=== PATIENT | male | born 1980 | race Two or more races ===

== ENCOUNTER 2021-01-21 16:40 | Emergency (ER) | payer OTHER ==
[~2021-01-21] VITALS: Ht 185.4 cm; Wt 108.0 kg
--- NOTE | 2021-01-21 17:11 | NUR ---
PT CAME IN [place] [facility] ABD PAIN THAT STARTED LAST NIGHT. "IT FEELS LIKE IM CONSTIPATED AND THE PAIN HAS BEEN MOVING DOWN MY ABD. I TOOK A SUPPOSITORY AND LAXATIVE BUT IT DIDNT SEEM TO HELP" PT RESTING IN [facility]. PROVIDED UA. AWAITING
[2021-01-21] MEDS ORDERED: MORPHINE SULFATE 4 MG/ML, 1ML ONE ×2 (18:06→19:28)
[2021-01-21] MEDS ORDERED: ONDANSETRON 2MG/ML, 2ML ONE (18:06)
[2021-01-21] MEDS ORDERED: ONDANSETRON 2MG/ML, 2ML IVPush ONE (18:30)
[2021-01-21] MEDS ORDERED: SODIUM CHLORIDE FLUSH 10ML SYR IVF ONE (18:30)
[2021-01-21] MEDS ORDERED: SODIUM CHLORIDE 0.9% 1,000ML IVBOLUS ONE (18:30)
[2021-01-21] MEDS: MORPHINE SULFATE 4 MG/ML, 1ML IVPush PRN ×2 (18:32→19:31)
[2021-01-21 18:36] VITALS: BP 163/92
[2021-01-21 18:36] LABS: ALANINE AMINOTRANSFERASE 27 U/L (12-78); ALBUMIN 4.1 g/dL (3.4-5.0); ANION GAP 7 mmol/L (5-15); CALCIUM 9.3 mg/dL (8.5-10.1); CHLORIDE 104 mmol/L (98-107); CREATININE 1.52 mg/dL (0.7-1.3)
[2021-01-21 18:39] LABS: ALKALINE PHOSPHATASE 69 U/L (45-117); BILIRUBIN,TOTAL 1.9 mg/dL (0.2-1.0); TOTAL PROTEIN 7.6 g/dL (6.4-8.2)
[2021-01-21 18:47] LABS: MICROSCOPIC NOT IND
[2021-01-21 18:50] LABS: BASOPHILS % (AUTO) 0 % (0-1); EOSINOPHILS % (AUTO) 0 % (1-7); LYMPHOCYTES % (AUTO) 7 % (22-44); MEAN CORPUSCULAR HEMOGLOBIN 30.3 pg (27.5-34.5); MEAN CORPUSCULAR HGB CONC 34.5 g/dL (33.2-36.2); MEAN PLATELET VOLUME 9.6 fL (7.4-10.4); MONOCYTES % (AUTO) 10 % (2-9); NEUTROPHILS % (AUTO) 82 % (42-75); PLATELET COUNT 296 x10^3/uL (130-400); RED BLOOD COUNT 5.34 x10^6/uL (4.38-5.82); RED CELL DISTRIBUTION WIDTH 13.7 % (9.4-14.8)
[2021-01-21] MEDS ORDERED: OMNIPAQUE 350 MG/ML, 100ML BOTTLE ONE (19:06)
[2021-01-21] MEDS ORDERED: KETOROLAC 30 MG/1 ML ONE (19:36)
[2021-01-21] MEDS ORDERED: KETOROLAC 15 MG/1ML IVPush ONE (20:00)
== END 2021-01-21 21:41 | disposition home or self-care (01) ==
LOC: ED 20:19
DX: N20.2 Calculus of kidney with calculus of ureter (principal); K59.00 Constipation, unspecified; R10.32 Left lower quadrant pain; R11.2 Nausea with vomiting, unspecified
CPT/HCPCS: 36415; 74177; 80053; 81003; 83690; 85025; 96361; 96374; 96375; 96376; 99285; J1885; J2270; J2405; J7030; Q9967